=== PATIENT | female | born 1955 | race Caucasian/White ===

== ENCOUNTER 2019-06-26 22:07 | Observation (INO) ==
[2019-06-26] MEDS ORDERED: cefTRIAXone 1,000 MG in Water for inj. (sterile) 10 ML IVP ONE (22:16)
[2019-06-26] MEDS ORDERED: Ipratropium/Albuterol Neb 3 ML IH ONE (22:16)
[2019-06-26] MEDS ORDERED: methylPREDNISolone 125 MG/2 ML VIAL IVP ONE (22:16)
[2019-06-26] MEDS ORDERED: 0.9 % Sodium Chloride 1,000 ML IVC ONE (22:16)
[2019-06-26] MEDS ORDERED: Azithromycin 500 MG in 0.9 % Sodium Chloride 250 ML IVPB ONE (22:16)
[2019-06-26] MEDS ORDERED: Ondansetron 4 MG/2 ML VIAL IVP ONE (22:37)
[2019-06-26 22:44] LABS: Basophils # 0.1 K/mcL (0.0-0.2); Basophils % 0.9 %; Eosinophils # 1.1 K/mcL (0.0-0.6); Eosinophils % 6.6 %; Hematocrit 41.8 % (35.3-44.9); Hemoglobin 14.2 g/dL (11.5-15.4); Immature Granulocytes % 0.9 % (0-4); Lymphocytes # 0.9 K/mcL (0.6-4.6); Lymphocytes % 5.7 %; Mean Corpuscular Hemoglobin 32.6 pg (28.0-33.3); Mean Corpuscular Volume 96.1 fL (83.0-100.0); Mean Platelet Volume 8.5 fL (9.4-12.4); Monocytes # 1.3 K/mcL (0.0-1.3); Neutrophils # 12.3 K/mcL (1.6-8.9); Platelet Count 329 K/mcL (140-400); Red Blood Count 4.35 M/mcL (3.82-4.97); Red Cell Distribution Width 11.9 % (11.5-14.5); Segmented Neutrophils % 77.9 %; White Blood Count 15.8 K/mcL (4.3-11.1)
[2019-06-26 23:05] LABS: BUN/Creatinine Ratio 16 (6-26); Blood Urea Nitrogen 9 mg/dL (8-23); Carbon Dioxide 23 mEq/L (23-29); Chloride 93 mEq/L (98-107); Glucose 143 mg/dL (70-105); Osmolality,Calculated 265 (280-300); Sodium 127 mEq/L (136-145); eGFR For African Americans > 60 (> 60); eGFR For Non-African Americans > 60 (> 60)
[2019-06-26 23:16] LABS: Troponin I 0.07 ng/mL (< 0.04)
[2019-06-27] MEDS ORDERED: Aspirin 81 MG TAB.CHEW PO ONE
[2019-06-27 01:12] LABS: ABG Base Excess -1 mEq/L (-2 to 3); ABG HCO3 25 mEq/L (21-27); ABG Oxygen Saturation 94 % (95-98); ABG PCO2 47 mmHg (35-45); ABG PH 7.33 pH Units (7.32-7.45); ABG PO2 76 mmHg (85-104); ABG TCO2 27 mEq/L (20-26)
[2019-06-27] MEDS ORDERED: GuaiFENesin Liq 200 MG/10 ML UDC PO PRN (01:17)
[2019-06-27] MEDS: 0.9 % Sodium Chloride 1,000 ML IVC SCH ×2 (01:52→08:49)
[2019-06-27] MEDS: Ipratropium/Albuterol Neb 3 ML IH SCH ×6 (03:16→23:28)
[2019-06-27 03:31] LABS: BUN/Creatinine Ratio 17 (6-26); Blood Urea Nitrogen 8 mg/dL (8-23); Calcium 8.3 mg/dL (8.6-10.3); Carbon Dioxide 23 mEq/L (23-29); Chloride 97 mEq/L (98-107); Glucose 143 mg/dL (70-105); Osmolality,Calculated 269 (280-300); Potassium 4.3 mEq/L (3.5-5.1); Sodium 129 mEq/L (136-145); eGFR For African Americans > 60 (> 60); eGFR For Non-African Americans > 60 (> 60)
[2019-06-27 03:39] LABS: Troponin I 0.35 ng/mL (< 0.04)
[2019-06-27] MEDS ORDERED: MethylPREDNISolone 40 MG/ML VIAL IVP SCH (06:00)
[2019-06-27] MEDS: *HR* Heparin 5,000 UNIT/ML VIAL SQ SCH ×3 (06:53→20:49)
[2019-06-27] MEDS: Cholecalciferol (D-3) 1,000 UNIT (25MCG) TABLET PO SCH (08:50)
[2019-06-27] MEDS: Gabapentin 300 MG CAPSULE PO SCH (08:50)
[2019-06-27] MEDS: Aspirin 81 MG TAB.CHEW PO SCH (08:50)
[2019-06-27] MEDS: amLODIPine 5 MG TABLET PO SCH (08:50)
[2019-06-27] MEDS ORDERED: NON-FORMULARY MEDICATION 1 EACH EACH (Potassium 99 MG) PO SCH (09:00)
[2019-06-27 10:59] LABS: Basophils % 0.2 %; Eosinophils % 0.2 %; Hematocrit 39.1 % (35.3-44.9); Hemoglobin 13.2 g/dL (11.5-15.4); Immature Granulocytes % 0.5 % (0-4); Lymphocytes # 0.3 K/mcL (0.6-4.6); Lymphocytes % 5.6 %; Mean Corpuscular HGB Conc 33.8 g/dL (31.6-35.5); Mean Corpuscular Hemoglobin 32.1 pg (28.0-33.3); Mean Corpuscular Volume 95.1 fL (83.0-100.0); Mean Platelet Volume 8.7 fL (9.4-12.4); Monocytes # 0.1 K/mcL (0.0-1.3); Monocytes % 2.4 %; Neutrophils # 5.4 K/mcL (1.6-8.9); Platelet Count 326 K/mcL (140-400); Red Blood Count 4.11 M/mcL (3.82-4.97); Segmented Neutrophils % 91.1 %
[2019-06-27 11:02] LABS: White Blood Count 5.9 K/mcL (4.3-11.1)
[2019-06-27 11:19] LABS: BUN/Creatinine Ratio 11 (6-26); Blood Urea Nitrogen 5 mg/dL (8-23); Calcium 8.2 mg/dL (8.6-10.3); Carbon Dioxide 25 mEq/L (23-29); Chloride 97 mEq/L (98-107); Glucose 134 mg/dL (70-105); Osmolality,Calculated 265 (280-300); Potassium 4.2 mEq/L (3.5-5.1); Sodium 128 mEq/L (136-145); eGFR For African Americans > 60 (> 60); eGFR For Non-African Americans > 60 (> 60)
[2019-06-27] MEDS: Acetaminophen 325 MG TABLET PO PRN (12:33)
[2019-06-27] MEDS: methylPREDNISolone 125 MG/2 ML VIAL IVP SCH ×2 (13:43→16:57)
[2019-06-27 14:01] LABS: Adenovirus Not Detected (Not Detect); Bordetella Pertussis Not Detected (Not Detect); Chlamydophila pneumoniae Not Detected (Not Detect); Coronavirus 229E Not Detected (Not Detect); Coronavirus HKU1 Not Detected (Not Detect); Coronavirus NL63 Not Detected (Not Detect); Coronavirus OC43 Not Detected (Not Detect); Human Metapneumovirus Not Detected (Not Detect); Human Rhinovirus/Enterovirus DETECTED (Not Detect); Influenza A Subtype 2009 H1 Not Detected (Not Detect); Influenza A Untypeable Not Detected (Not Detect); Influenza B Not Detected (Not Detect); Mycoplasma pneumoniae Not Detected (Not Detect); Parainfluenza Virus 1 Not Detected (Not Detect); Parainfluenza Virus 2 Not Detected (Not Detect); Parainfluenza Virus 3 Not Detected (Not Detect); Parainfluenza Virus 4 Not Detected (Not Detect); Respiratory Syncytial Virus Not Detected (Not Detect)
[2019-06-27] MEDS ORDERED: GuaiFENesin/Codeine Oral Soln 5 ML UDC PO ONE (15:47)
[2019-06-27] MEDS: Azithromycin 500 MG in D5% in Water 250 ML IVPB SCH (20:50)
[2019-06-27] MEDS: Gabapentin 100 MG CAPSULE PO SCH (20:50)
[2019-06-27] MEDS: MethylPREDNISolone 40 MG/ML VIAL IVP SCH (23:33)
[2019-06-27] MEDS: Mirtazapine 15 MG TABLET PO SCH (23:33)
[2019-06-28] MEDS: Ipratropium/Albuterol Neb 3 ML IH SCH ×3 (03:33→11:04)
[2019-06-28 04:07] LABS: Basophils % 0.1 %; Hematocrit 38.4 % (35.3-44.9); Hemoglobin 13.1 g/dL (11.5-15.4); Immature Granulocytes % 1.3 % (0-4); Lymphocytes # 0.4 K/mcL (0.6-4.6); Lymphocytes % 6.1 %; Mean Corpuscular HGB Conc 34.1 g/dL (31.6-35.5); Mean Corpuscular Hemoglobin 32.4 pg (28.0-33.3); Monocytes # 0.5 K/mcL (0.0-1.3); Monocytes % 7.4 %; Platelet Count 325 K/mcL (140-400); Red Blood Count 4.04 M/mcL (3.82-4.97); Red Cell Distribution Width 11.9 % (11.5-14.5); Segmented Neutrophils % 85.1 %
[2019-06-28 04:17] LABS: BUN/Creatinine Ratio 15 (6-26); Blood Urea Nitrogen 6 mg/dL (8-23); Calcium 8.5 mg/dL (8.6-10.3); Carbon Dioxide 27 mEq/L (23-29); Chloride 95 mEq/L (98-107); Glucose 145 mg/dL (70-105); Osmolality,Calculated 268 (280-300); Potassium 3.8 mEq/L (3.5-5.1); Sodium 129 mEq/L (136-145); eGFR For African Americans > 60 (> 60); eGFR For Non-African Americans > 60 (> 60)
[2019-06-28 04:24] LABS: ABG Base Excess 3 mEq/L (-2 to 3); ABG HCO3 28 mEq/L (21-27); ABG Oxygen Saturation 94 % (95-98); ABG PCO2 43 mmHg (35-45); ABG PH 7.42 pH Units (7.32-7.45); ABG PO2 70 mmHg (85-104); ABG TCO2 30 mEq/L (20-26)
[2019-06-28] MEDS: *HR* Heparin 5,000 UNIT/ML VIAL SQ SCH ×3 (05:14→22:24)
[2019-06-28] MEDS: Acetaminophen 325 MG TABLET PO PRN ×2 (05:16→16:35)
[2019-06-28] MEDS: MethylPREDNISolone 40 MG/ML VIAL IVP SCH ×3 (09:40→23:49)
[2019-06-28] MEDS: Cholecalciferol (D-3) 1,000 UNIT (25MCG) TABLET PO SCH (09:40)
[2019-06-28] MEDS: Aspirin 81 MG TAB.CHEW PO SCH (09:40)
[2019-06-28] MEDS: amLODIPine 5 MG TABLET PO SCH (09:40)
[2019-06-28] MEDS: Gabapentin 300 MG CAPSULE PO SCH (09:40)
[2019-06-28] MEDS: Fluticasone Propionate Nasal 50 MCG/SPRAY BOTTLE NS SCH (12:33)
[2019-06-28] MEDS ORDERED: Acetylcysteine 10% 2 ML INHSOL IH ONE (13:45)
[2019-06-28] MEDS: Levalbuterol Neb 1.25 MG/3 ML IH SCH ×3 (15:54→23:08)
[2019-06-28] MEDS: Azithromycin 500 MG in D5% in Water 250 ML IVPB SCH (20:34)
[2019-06-28] MEDS: Gabapentin 100 MG CAPSULE PO SCH (20:35)
[2019-06-28] MEDS: Mirtazapine 15 MG TABLET PO SCH (20:35)
[2019-06-29] MEDS: Levalbuterol Neb 1.25 MG/3 ML IH SCH ×4 (03:54→15:50)
[2019-06-29] MEDS: *HR* Heparin 5,000 UNIT/ML VIAL SQ SCH ×2 (05:27→15:26)
[2019-06-29 06:56] LABS: Basophils % 0.1 %; Hematocrit 39.9 % (35.3-44.9); Hemoglobin 13.5 g/dL (11.5-15.4); Immature Granulocytes % 0.7 % (0-4); Lymphocytes # 0.3 K/mcL (0.6-4.6); Lymphocytes % 3.2 %; Mean Corpuscular HGB Conc 33.8 g/dL (31.6-35.5); Mean Corpuscular Hemoglobin 32.4 pg (28.0-33.3); Mean Corpuscular Volume 95.7 fL (83.0-100.0); Mean Platelet Volume 8.8 fL (9.4-12.4); Monocytes # 0.7 K/mcL (0.0-1.3); Monocytes % 7.4 %; Neutrophils # 8.5 K/mcL (1.6-8.9); Platelet Count 335 K/mcL (140-400); Red Blood Count 4.17 M/mcL (3.82-4.97); Red Cell Distribution Width 12.1 % (11.5-14.5); Segmented Neutrophils % 88.6 %; White Blood Count 9.6 K/mcL (4.3-11.1)
[2019-06-29 07:14] LABS: BUN/Creatinine Ratio 21 (6-26); Blood Urea Nitrogen 10 mg/dL (8-23); Calcium 8.9 mg/dL (8.6-10.3); Carbon Dioxide 31 mEq/L (23-29); Chloride 97 mEq/L (98-107); Glucose 137 mg/dL (70-105); Osmolality,Calculated 279 (280-300); Sodium 134 mEq/L (136-145); eGFR For African Americans > 60 (> 60); eGFR For Non-African Americans > 60 (> 60)
[2019-06-29] MEDS: Aspirin 81 MG TAB.CHEW PO SCH (09:25)
[2019-06-29] MEDS: Gabapentin 300 MG CAPSULE PO SCH (09:25)
[2019-06-29] MEDS: Cholecalciferol (D-3) 1,000 UNIT (25MCG) TABLET PO SCH (09:25)
[2019-06-29] MEDS: amLODIPine 5 MG TABLET PO SCH (09:25)
[2019-06-29] MEDS: MethylPREDNISolone 40 MG/ML VIAL IVP SCH (09:26)
[2019-06-29] MEDS: Fluticasone Propionate Nasal 50 MCG/SPRAY BOTTLE NS SCH (09:27)
[2019-06-29 15:50] VITALS: BP 132/71
[2019-06-30] MEDS ORDERED: Tiotropium 18 MCG inhalation IH SCH (07:00)
[2019-07-01] MEDS ORDERED: NON-FORMULARY MEDICATION 1 EACH EACH (Alendronate Sodium [Fosamax] 70 MG) PO SCH (01:16)
== END 2019-06-29 18:15 | disposition home or self-care (01) ==
LOC: 2NENU 22:07 → EMEROOARM 22:07 → SUATTDRO 06-27 01:27 → 2NENU 06-27 02:04
PROVIDERS: ADMIT Internal Medicine; ATTEND Student in an Organized Health Care Education/Training Program